=== PATIENT | female | born 1985 ===

== ENCOUNTER → 2025-02-22 | Outpatient (CLI) | payer BC | END | disposition home or self-care (01) | LOC: RAD 12:23 | PROVIDERS: ATTEND Internal Medicine | DX: M53.3 Sacrococcygeal disorders, not elsewhere classified (principal) ==

== ENCOUNTER → 2025-03-23 | Outpatient (CLI) | payer BC | END | disposition home or self-care (01) | LOC: CT 00:52 | PROVIDERS: ATTEND Internal Medicine | DX: M53.3 Sacrococcygeal disorders, not elsewhere classified (principal); M43.17 Spondylolisthesis, lumbosacral region ==